=== PATIENT | female | born 1940 | race Caucasian/White ===

== ENCOUNTER 2017-11-30 05:21 | Inpatient (IN) | payer OTHER ==
[2017-11-24 12:27] LABS: HEMATOCRIT 38.6 % (37.0-47.0); HEMOGLOBIN 13.2 gm/dL (12.0-15.0); MCH 30.7 pg (26.0-34.0); MCHC 34.2 g/dL (28.0-37.0); MCV 89.9 fL (80.0-100.0); RBC 4.3 mil/uL (4.20-5.00); RDW 12.7 % (10.5-14.5)
[2017-11-24 12:28] LABS: URINE BILIRUBIN NEGATIVE (Negative); URINE BLOOD NEGATIVE (Negative); URINE CLARITY CLEAR; URINE COLOR YELLOW; URINE GLUCOSE-RANDOM* NEGATIVE (Negative); URINE KETONES NEGATIVE (Negative); URINE LEUKOCYTES-REFLEX NEGATIVE (Negative); URINE NITRITE-REFLEX NEGATIVE (Negative); URINE PROTEIN (DIPSTICK) NEGATIVE (Negative); URINE SPECIFIC GRAVITY 1.025 (1.005-1.035); URINE UROBILINOGEN 0.2 E.U./dl (0.2-1.0)
[2017-11-24 12:38] LABS: ALBUMIN 4.3 g/dL (3.4-5.0); CREATININE 0.9 mg/dL (0.6-1.0); POTASSIUM 4.6 mmol/L (3.5-5.1)
[2017-11-24 12:41] LABS: PROTIME 10.7 Seconds (9.3-11.4)
[2017-11-30] VITALS (9 sets, daily range): BP systolic 120–142; BP diastolic 58–87
[~2017-11-30] VITALS: Ht 165.1 cm; Wt 74.2 kg
--- NOTE | ~2017-11-30 | O ---
[facility] [place] [address] OPERATIVE REPORT Name: SHIKHA THOMAS Room #: 416-P ADM IN M.R.#: [id number] Admission: 11/30/17 Attend Phys: Zak Tang MD Discharge: Date of : 44 Report #: [id number] THIS REPORT FOR: //name// CC: Lex Tang DATE OF SERVICE: 11/30/2017 PREOPERATIVE DIAGNOSIS: Left hip osteoarthritis. POSTOPERATIVE DIAGNOSIS: Left hip osteoarthritis. PROCEDURE: Left total hip arthroplasty. SURGEON: Zak Tang MD. SHAMPOO TECHNICIAN: Jeri Salazar PA-C. INDICATIONS FOR ASSISTANCE: Throughout the case, extensive retraction as well as dislocation and reduction of the hip was required. This was afforded to me by my clinical laboratory assistant. ANESTHESIA: General endotracheal. IMPLANTS: [employer] size 13 high offset Synergy press fit stem, a size 52 R3 acetabular cup and a size 36+4 cobalt chrome head. ESTIMATED BLOOD LOSS: 150 mL. COMPLICATIONS: None. SPECIMENS: None. CONDITION UPON LEAVING THE OR: Stable. INDICATION FOR PROCEDURE: The patient is a 77-year-old female with severe left hip osteoarthritis. She had failed conservative treatment for this and after discussion with her, she elected for left total hip arthroplasty. DESCRIPTION OF PROCEDURE: Risks, benefits, alternatives, complications were discussed in detail with the patient including but not limited to risk of anesthesia, risk of damage to nerves, arteries, blood vessels, risk for infection, bleeding, risk for continued hip pain, leg length discrepancy, instability and need for reoperation. Informed consent was obtained from the patient. Left hip was appropriately marked in the preoperative holding area. She was brought to the operating room and placed in supine position on operating [facility] [address] [place] [address] OPERATIVE REPORT Name: SHIKHA THOMAS Juan Jose Room #: 416-P [facility] IN M.R.#: [id number] Admission: 11/30/17 Attend Phys: Zak Tang MD Discharge: Date of : 44 Report #: [id number] room table. General endotracheal anesthesia was induced without complication. IV Ancef was given for preoperative antibiotics. She was placed in the right lateral decubitus position with the left hip uppermost. Left hip and lower extremity were prepped and draped in normal sterile fashion. Timeout was performed properly identifying the patient and procedure as well as the instrumentation and implants. All in the operating room were in agreement. Standard posterior approach to the hip was made with 10 blade through the skin. Dissection was taken down to the fascia with Bovie cautery, and Scott elevator was used to clean the fascia. Fresh 10 blade was used to make a fascial incision. This was taken proximally and distally with curved [place] scissor. Charnley retractor was placed. Trochanteric bursa was taken down with Bovie cautery. Piriformis tendon was identified, tagged and taken down with Bovie. Short external rotators were also taken down with Bovie. Capsulotomy was made, and capsule ends were tagged for later repair. The hip was dislocated. There was extensive osteoarthritic change of the femoral head. Femoral neck cut was made 1 cm proximal to lesser trochanter based on preoperative templating, and the femoral head was removed. Deep acetabular retractors were placed. The labrum was removed sharply. Pulvinar was removed with Bovie cautery. Acetabulum was then sequentially reamed up to a size 52, at which point, there was excellent bleeding cancellous bone. A size 51 trial was placed and found to have a good fit. A final size 52 R3 acetabular cup was placed, and one acetabular screw was placed for backup fixation. Polyethylene liner for 36 head was placed. After this, attention was turned to the femur. This was reamed and broached up to a size 13, at which point, the size 13 broach was stable, was trialed with a high offset neck and a 36+0 head. Hip was reduced, taken through range of motion, found to be somewhat stable posteriorly as well as somewhat short on leg length, and it was felt this could be made up for with final implant. Hip was dislocated, broach was removed and final size 13 high offset Synergy stem was placed and seated. This was then trialed with a 36+4 head. Hip was reduced, taken through range of motion, found to be stable, found to have equal leg lengths. Hip was dislocated. A final size 36+4 cobalt chrome head was placed. Hip was reduced, taken through range of motion, found to be stable, found to have equal leg lengths. Wound was thoroughly irrigated with normal saline. Periarticular injection consisting of morphine, ropivacaine, epinephrine, Toradol was placed around the hip joint. A gram of vancomycin was placed deep in the hip joint. The capsule and piriformis were repaired with 0 FiberWire. Fascia was closed with 0 Vicryl, skin was closed with 2-0 Vicryl, 3-0 Monocryl. Dermabond and a TRACIE dressing was applied. The patient tolerated this procedure well and went to the recovery room under the care of Anesthesia postoperatively. <ELECTRONICALLY SIGNED> By: Zak Tang MD 12/01/17 1256 [id number] [id number] Zak Tang MD /nt
--- NOTE | ~2017-11-30 | EKG ---
[address] [address] ELECTROCARDIOGRAM REPORT Name: WILLIAMSHIKHA L Room #: [facility] IN [facility]#: [id number] Admission: Attend Phys: Zak Tang MD Discharge: Date of : 44 Report #: [id number] THIS REPORT FOR: //name// [facility] Test Date: 2017-11-24 Test Time: 12:24:37 Pat Name: SHIKHA THOMAS Department: Room: Gender: F Rn Hed[place]: [facility] : 1940 Requested By: Zak Tang Order Number: [id number] MD: Vin Dorman Measurements Intervals [place] Rate: 70 P: 85 FL: 170 QRS: 65 QRSD: 94 T: 20 QT: 427 QTc: 461 Interpretive Statements Sinus rhythm Normal tracing No previous ECG available for comparison Electronically Signed On 11-25-2017 8:33:02 [employer] by Vin Dorman [email or web address] <ELECTRONICALLY SIGNED> By: Vin Dorman MD, [facility] 11/25/17 0833 1224 1224 Vin Dorman MD, FACC /EPI
[~2017-11-30 05:21] MED LIST: ALEVE220 MG PO; ASPIR 8181 MG PO; CENTRUM SILVER1 EAC4 PO; NORVASC10 MG PO; TOLTERODINE TART4 MG PO; VITAMIN D-32000 UNIT PO
[2017-12-01] VITALS: BP 127/71
[2017-12-01 04:00] VITALS: BP 120/62
[2017-12-01 06:14] LABS: ABSOLUTE NEUTROPHILS 4.2 thou/uL (1.4-8.2); BASOPHILS 0.5 % (0.0-2.0); EOSINOPHILS 1.8 % (0.0-3.0); HEMATOCRIT 27.9 % (37.0-47.0); HEMOGLOBIN 9.5 gm/dL (12.0-15.0); LYMPHOCYTES 18.1 % (24.0-44.0); MCH 31.1 pg (26.0-34.0); MCHC 34.1 g/dL (28.0-37.0); MCV 91.1 fL (80.0-100.0); MONOCYTES 8.3 % (1.0-8.0); PLATELET COUNT 164 thou/uL (150-400); POLYS 71.3 % (36.0-66.0); RBC 3.06 mil/uL (4.20-5.00); RDW 12.7 % (10.5-14.5); WBC 5.9 thou/uL (4.0-11.0)
[2017-12-01 06:26] LABS: CALCIUM 7.8 mg/dL (8.5-10.1); POTASSIUM 3.8 mmol/L (3.5-5.1)
[2017-12-01 07:01] VITALS: BP 117/66
[2017-12-01 14:08] VITALS: BP 117/66
== END 2017-12-01 16:10 | disposition home health service (06) | DRG 470 ==
LOC: TBA 05:21 → 4N 05:21 → PRE 05:23 → 4N 15:15 → PRE 15:41 → ENTRNSPT 12-01 16:10 → 4N 12-01 16:10
PROVIDERS: Nurse Practitioner; Orthopaedic Surgery
PROC: 0SRB02A Replacement of Left Hip Joint with Metal on Polyethylene Synthetic Substitute, Uncemented, Open Approach (ICD-10-PCS; principal; 2017-11-30)
DX: M16.12 Unilateral primary osteoarthritis, left hip (principal); I10 Essential (primary) hypertension; R39.15 Urgency of urination
CPT/HCPCS: 10790; 50101; 50382; 50414; 51771; 53000; 53078; 53367; 54118; 56524; 56527; 56528; 56530; 57095; 62110; 62900; 70005

== ENCOUNTER 2017-12-03 23:17 | Emergency (ER) | payer OTHER ==
[~2017-12-03] VITALS: Ht 165.1 cm; Wt 73.5 kg
[2017-12-04 06:38] VITALS: BP 134/56
== END 2017-12-04 06:40 | disposition home or self-care (01) ==
LOC: ER 23:17
DX: K59.03 Drug induced constipation (principal); T40.2X5A Adverse effect of other opioids, initial encounter; Y92.9 Unspecified place or not applicable; F41.9 Anxiety disorder, unspecified; I10 Essential (primary) hypertension; F17.210 Nicotine dependence, cigarettes, uncomplicated